=== PATIENT | male | born 1975 | race Caucasian/White ===

== ENCOUNTER 2019-09-16 22:14 | Emergency (ER) | payer OTHER ==
[~2019-09-16] VITALS: Ht 175.3 cm; Wt 74.8 kg
[2019-09-16 22:29] LABS: ABSOLUTE NEUTROPHILS 6.1 thou/uL (1.4-8.2); BASOPHILS 0.5 % (0.0-2.0); EOSINOPHILS 0.1 % (0.0-3.0); HEMATOCRIT 42.7 % (42.0-52.0); HEMOGLOBIN 14.4 gm/dL (14.0-18.0); LYMPHOCYTES 3.2 % (24.0-44.0); MCH 31.6 pg (26.0-34.0); MCHC 33.7 g/dL (28.0-37.0); MCV 93.7 fL (80.0-100.0); MONOCYTES 1.8 % (1.0-8.0); PLATELET COUNT 114 thou/uL (150-400); POLYS 94.4 % (36.0-66.0); RBC 4.55 mil/uL (4.50-6.00); RDW 12.8 % (10.5-14.5); WBC 6.5 thou/uL (4.0-11.0)
[2019-09-16 22:40] LABS: ANION GAP 9 mmol/L (7-16); BUN 17 mg/dL (7-18); CALCIUM 8.8 mg/dL (8.5-10.1); CHLORIDE 97 mmol/L (98-107); CO2 26 mmol/L (21-32); CREATININE 1.1 mg/dL (0.7-1.3); GLUCOSE 105 mg/dL (74-106); POTASSIUM 3.8 mmol/L (3.5-5.1); SODIUM 132 mmol/L (136-145)
[2019-09-16 22:44] LABS: MAGNESIUM 1.5 mg/dL (1.8-2.4); TROPONIN-I <0.06 ng/mL (<0.06)
[2019-09-17 00:46] VITALS: BP 111/72
--- NOTE | 2019-09-17 10:29 | EKG ---
[facility] [place] [address] ELECTROCARDIOGRAM REPORT Name: AMELIA VALADEZ Room #: DEP [facility]#: [id number] Admission: 09/16/19 Attend Phys: Discharge: 09/17/19 Date of : 75 Report #: [id number] THIS REPORT FOR: cc: GRADY - No family physician/PCP FAM - No family physician/PCP Heri Osborn MD [facility] ~ THIS REPORT FOR: //name// [facility] ED Test Date: 2019-09-17 Test Time: 00:05:48 Pat Name: AMELIA VALADEZ Department: Room: Gender: Director Of [employer]: : 1975 Requested By: Chintan Vincent Order Number: [id number] MD: Heri Osborn Measurements Intervals [place] Rate: 108 P: 88 ND: 139 QRS: 121 QRSD: 94 T: 55 QT: 320 QTc: 429 Interpretive Statements Sinus tachycardia Consider RVH w/ secondary repol abnormality Baseline wander in lead(s) V2 No previous ECG available for comparison Electronically Signed On 09-17-2019 10:28:04 ELECTRICIAN CHIEF by Heri Osborn [email or web address] <ELECTRONICALLY SIGNED> By: Heri Osborn MD, [facility] 09/17/19 1028 0005 0005 Heri Osborn MD, [facility] /EPI
== END 2019-09-17 00:48 | disposition home or self-care (01) ==
LOC: ER 22:14
PROVIDERS: Emergency Medicine
DX: F15.10 Other stimulant abuse, uncomplicated (principal); D32.9 Benign neoplasm of meninges, unspecified